=== PATIENT | female | born 1960 | race Caucasian/White ===

== ENCOUNTER 2017-03-10 14:13 | Emergency (ER) | payer OTHER ==
[~2017-03-10] VITALS: Ht 154.9 cm; Wt 83.9 kg
[2017-03-10 14:27] VITALS: BP 128/82
--- NOTE | 2017-03-10 15:01 | ED NECK/BACK PAIN COMPLAINT ---
History of Present Illness General Chief Complaint: Low Back Pain/Injury Stated Complaint: LOW BACK PAIN/CHRONIC Source: patient Exam Limitations: no limitations Vital Signs & Intake/Output Vital Signs & Intake/Output Vital Signs Date Time Temp Pulse Resp B/P B/P Pulse O2 O2 Flow FiO2 Mean Ox Delivery Rate 03/10 1427 97.2 66 18 128/82 98 Room Air Room Air Allergies Coded Allergies: MDX - Meperidine (From DEMEROL) (Mild, H/A 03/18/14) MDX - Acetaminophen (From Propoxyphene Napsylate & Acetami...) (Mild, HEADACHE 03/18/14) MDX - Propoxyphene (From Propoxyphene Napsylate & Acetami...) (Mild, HEADACHE ) Reconcile Medications Ketorolac Tromethamine 10 MG TABLET 1 TAB PO TID PRN PAIN RECEIVED IM IN ER Oxycodone HCl/Acetaminophen (Percocet 5-325 MG Tablet) 5 MG-325 MG TABLET 1 TAB PO BID PRN PAIN Triage Note: TRIAGE: 56 Y/O FEMALE PRESENTS C/O CHRONIC BACK PAIN FLARE UP. "I'VE BEEN ON A TRAIN FROM [place]. NOTHING WAS WORKING." Triage Nurses Notes Reviewed? yes Onset: Gradual Duration: constant Timing: recent history Location: paraspinous muscles Radiation: none Context: lifting Loss of Consciousness: no loss of consciousness HPI: Patient is a 56-year-old female with a past medical history of low back pain and spinal stenosis who presents emergency room same that on Sunday she took a train from [place] where she used to live to move to [place] because her mother is sick where she states that during the train ride her back started to bother her and moving the suitcases the patient had her back began to hurt worse where she currently complains of localized left-sided lumbar muscular pain. Patient has taken MULTIPLE DOSES of ibuprofen with no relief of symptoms. Denies any extremity paresthesia weakness pain now or bladder incontinence or saddle paresthesia. Denies any abdominal pain nausea vomiting dysuria hematuria Past History Travel History Traveled to [place] past 21 day No Medical History Any Pertinent Medical History? see below for history Hepatic: hepatitis C Musculoskeletal: chronic back pain Psychiatric: insomnia Surgical History Surgical History: non-contributory Psychosocial History What is your primary language Vietnamese Tobacco Use: Current Daily Use Daily Tobacco Use Amount/Type: => 5 Cigarettes daily ETOH Use: denies use Illicit Drug Use: denies illicit drug use Family History Hx Contributory? No Review of Systems Review of Systems Constitutional: Reports: no symptoms. Eyes: Reports: no symptoms. Ears, Nose, Throat, Mouth: Reports: no symptoms. Respiratory: Reports: no symptoms. Cardiovascular: Reports: no symptoms. Gastrointestinal/Abdominal: Reports: no symptoms. Musculoskeletal: Reports: see HPI, back pain, muscle pain, muscle stiffness. Skin: Reports: no symptoms. Neurological/Psychological: Reports: no symptoms. All Other Systems: Reviewed and Negative Physical Exam Physical Exam General Appearance: no apparent distress, comfortable Neck: normal inspection, supple, full range of motion Comments: Well-developed well-nourished person in no acute distress HEENT: Normal EENT exam Neck: Supple, no lymphadenopathy, normal range of motion without pain or tenderness Back: Normal inspection, no central spinous tenderness, left lateral muscular pain decreased active range of motion noted Cardiovascular: Regular rate and rhythms no murmurs rubs or gallops, normal JVP Respiratory: Chest nontender. No respiratory distress.breath sounds clear to auscultation bilaterally Abdomen: Soft, nontender nondistended, no appreciable organomegaly. Normal bowel sounds. No ascites Extremity: No edema, no calf tenderness to palpation, normal and equal pulses. Neuro: Alert oriented x3, motor sensory normal Bilateral lower extremity myotomes dermatomes DTRs intact. Skin: No appreciable rash on exposed skin, skin is warm and dry. Psych: Mood and affect is normal, memory and judgment is normal. Progress Differential Diagnosis: aortic dissection, C spine injury, carotid dissection, cauda equina syn, herniated disc, myofascial strain, pyelo/UTI, sciatica, spinal cord inj, thoracic outlet syn, T/L spine injury, ureterolithiasis Plan of Care: Current Medications Sig/Tricia Start time Last Medication Dose Stop Time Status Admin Ketorolac 30 MG ONCE ONE 03/10 1515 UNVr Tromethamine 03/10 1516 (Toradol) NO CONCERN OF CAUDA EQUINA SYNDROME Patient had bilateral lower extremity neurovascular was intact. No central spinous tenderness no mechanism of injury. Patient has concerns of lumbar strain. Patient was given [facility] practice for follow-up and establishment of a primary care doctor. (REGINA MARIE,DANIELLE) Departure Departure Disposition: HOME OR SELF CARE Condition: Stable Clinical Impression Primary Impression: Low back strain Referrals: PATIENT HAS NO PRIMARY CARE DR (PCP/Family) Additional Instructions: As discussed begin icing the area directly 20 minutes every 2 hours. Begin the prescription and ketorolac for pain and inflammation. Begin prescription of Percocet for breakthrough pain relief. Activity as tolerated. If symptoms worsen return to emergency room. On Sunday please follow up and establish [facility] for primary care evaluation and establishment. Departure Forms: Customer Survey General Discharge Information Prescriptions: Current Visit Scripts Ketorolac Tromethamine 1 TAB PO TID PRN PAIN #15 TAB RECEIVED IM IN ER Oxycodone HCl/Acetaminophen (Percocet 5-325 MG Tablet) 1 TAB PO BID PRN PAIN #10 TAB
[2017-03-10] MEDS ORDERED: PERCOCET 5-3251 EACH PO (15:16)
[2017-03-10] MEDS ORDERED: KETOROLAC TROME10 M1 PO (15:16)
== END 2017-03-10 15:27 ==
LOC: ERH 14:13
DX: S39.012A Strain of muscle, fascia and tendon of lower back, initial encounter (principal); X50.1XXA Overexertion from prolonged static or awkward postures, initial encounter; Y93.89 Activity, other specified; Y92.9 Unspecified place or not applicable
CPT/HCPCS: 96372; J1885